=== PATIENT | male | born 1975 | race African-American/Black ===

== ENCOUNTER 2017-09-05 10:36 | Emergency (ER) | payer BC ==
--- NOTE | 2017-09-05 11:08 | EDM.PDOC ---
ED HPI GENERAL MEDICAL PROBLEM - General Chief Complaint: Headache Stated Complaint: HEADACHE NOT GOING AWAY Time Seen by Provider: 09/05/17 10:50 Source of Information: Reports: Patient History Limitations: Reports: No Limitations - History of Present Illness INITIAL COMMENTS - FREE TEXT/NARRATIVE: Patient comes in the emergency department today with headache that's been on and off since for approximately 1 month. He's been seen in the emergency department on and also not primary care office on 09/03/2017. Patient's had multiple regiment medication to help abort the headache including Toradol, Compazine and Benadryl she's also been started on amitriptyline and given Toradol in the primary care office. Patient states that the headache has been intermittent but has not disappeared completely. Patient has had a CT IV hydration and labs including CBC BMP B12 TSH all laps of come back negative in the past except for his potassium was a little bit low . He was instructed to start [id number] potassium regiment. Patient is also on 50mg 3 tablets of Metoprolol daily and hydrochlorothiazide 50 mg daily for blood pressure. This morning he took one of his toradol with no relief. 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 Right Headache Pain Score (Numeric/FACES): 8 - Related Data Allergies Allergy/AdvReac Type Severity Reaction Status Date / Time No Known Allergies Allergy Verified 09/05/17 10:59 Past Medical History Cardiovascular History: Reports: High Cholesterol, Hypertension ED ROS GENERAL - Review of Systems Review Of Systems: See Below Constitutional: Reports: No Symptoms HEENT: Denies: Hearing Loss, Sinus Problem, Vertigo, Vision Change Respiratory: Reports: No Symptoms Cardiovascular: Reports: No Symptoms Endocrine: Reports: No Symptoms Neurological: Reports: No Symptoms Psychiatric: Reports: No Symptoms - Physical Exam Exam: See Below Exam Limited By: No Limitations General Appearance: Alert, WD/WN, No Apparent Distress Eye Exam: Bilateral Eye: PERRL Head Exam: Atraumatic, Normocephalic. No: Scalp Lacerations, Scalp Swelling, Scalp Abrasions, Scalp Ecchymosis, Scalp Hematoma, Scalp Tenderness, Facial Abrasions, Facial Ecchymosis, Facial Lacerations, Facial Swelling, Sinus Tenderness Neck: Normal Inspection, Supple, Non-Tender, Full Range of Motion Respiratory/Chest: No Respiratory Distress Cardiovascular: Normal Peripheral Pulses Neuro Exam (Abbreviated): Alert, Oriented, Normal Cognition, Normal Gait. No: Inattentive, Confused, Disoriented, Slow to Respond, Unresponsive, Memory Loss Remote Events, Memory Loss Recent Events, Abnormal Gait, Abnormal Reflexes Psychiatric: Normal Affect, Normal Mood Skin Exam: Warm, Dry, Intact, Normal Color Comments: headache- right temporal through the back of his head down his neck. Bright lites bother . No aura Course - Vital Signs Last Recorded V/S: Last Vital Signs Temp 35.4 C 09/05/17 10:43 Pulse 76 09/05/17 10:43 Resp 18 09/05/17 10:43 BP 137/96 H 09/05/17 10:43 Pulse Ox 100 09/05/17 10:43 Departure - Departure Time of Disposition: 12:00 Disposition: Home, Self-Care 01 Condition: Good Clinical Impression: Migraine - Discharge Information Instructions: General Headache Without Cause, [id number] Additional Instructions: take medications as prescribed increase water intake Reduce caffeine or alcohol products if using in access Follow up with PCP if not getting better within the week Do no skip meals, keep a regular schedule, ensure enough sleep/rest, avoid dehydration, take regular exercise Keep a food log to help rule out any food intolerance/causes A massage may be beneficial to help alleviate tension and stress and the muscles around the head
[2017-09-05] MEDS: SUMAtriptan 6 MG/0.5 ML SDV SUBCUT ONE (11:25)
[2017-09-05] MEDS: Ondansetron 4 MG/2 ML SDV IM ONE (11:28)
[2017-09-05] MEDS: diphenhydrAMINE 50 MG/ML SDV IM ONE (11:28)
== END 2017-09-05 11:44 | disposition home or self-care (01) ==
LOC: VM.ED 10:36
DX: G43.909 Migraine, unspecified, not intractable, without status migrainosus (principal); E78.00 Pure hypercholesterolemia, unspecified; I10 Essential (primary) hypertension
CPT/HCPCS: 96372; 99283; J1200; J2405; J3030